=== PATIENT | female | born 1975 | race American Indian/Alaskan Native ===

== ENCOUNTER 2019-01-14 10:03 | Observation (INO) | payer SELFPAY ==
[2019-01-14] MEDS ORDERED: ASPIRIN PO ONE (10:06)
[2019-01-14 10:38] LABS: Basophils # (Auto) 0.1 K/mm3 (0.0-0.1); Basophils % (Auto) 0.7 % (0.0-1.8); Eosinophils % (Auto) 0.6 % (0.0-4.3); Lymphocytes # (Auto) 1.1 K/mm3 (1.2-5.4); Lymphocytes % (Auto) 14.2 % (13.4-35.0); Mean Corpuscular HGB Conc 30 % (30-34); Monocytes # (Auto) 0.7 K/mm3 (0.0-0.8); Monocytes % (Auto) 9.6 % (0.0-7.3); Platelet Count 354 K/mm3 (140-440); Red Blood Count 4.23 M/mm3 (3.65-5.03)
[2019-01-14 10:40] LABS: Hematocrit 28.3 % (30.3-42.9); Hemoglobin 8.3 gm/dl (10.1-14.3); Mean Corpuscular Volume 67 fl (79-97)
[2019-01-14] MEDS ORDERED: NITROSTAT SL PRN (10:40)
[2019-01-14] MEDS ORDERED: PEPCID IV ONE (10:40)
[2019-01-14] MEDS ORDERED: NACL 0.9% 1000 ML 1,000 ML IV ONE (10:40)
[2019-01-14] MEDS ORDERED: TORADOL IV ONE (10:40)
[2019-01-14 10:41] LABS: Red Cell Distribution Width 20.8 % (13.2-15.2)
--- NOTE | 2019-01-14 10:41 | Emergency Department Report ---
ED General Adult HPI - General Chief complaint: Chest Pain Stated complaint: CHEST PAIN Time Seen by Provider: 01/14/19 10:15 Source: patient, EMS (ems notes not available at time of chart dictation), RN notes reviewed Mode of arrival: Stretcher Limitations: No Limitations - History of Present Illness Initial comments: Primary care Dr.: Dr. Joshua Santana This is a 43-year-old female. The patient has a past medical history of hypothyroidism, and is reportedly intermittently compliant with her Synthroid. She reports a family history of heart disease, and reports that her father of a myocardial infarction in his 60s. She also reports being "prediabetic." The patient presents to the emergency room with a complaint of nontraumatic central and bilateral anterior chest wall pain, intermittent over the past few days. There is no vomiting, however there is exertional shortness of breath, palpitations, and patient reports feeling clammy and cold. The shortness of breath is new, and this typically exertional. The chest wall pain increases with palpation, and increases with laying down. She denies DVT, pulmonary embolus risk factors, recent aspirin use, recent cocaine use, and reports no recent cardiac risk stratification within the past year. She reports that she is not , and reports that she has not delivered or given within the past 6 weeks. -: Gradual Location: chest Radiation: non-radiation Severity scale (0 -10): 3 Quality: aching Consistency: other Improves with: other Associated Symptoms: chest pain, diaphoresis, loss of appetite, malaise, shortness of breath, weakness, other (palpitations). denies: confusion, cough, fever/chills, headaches, nausea/vomiting, rash, seizure, syncope - Related Data Home Medications Medication Instructions Recorded Confirmed Last Taken Levothyroxine [Synthroid] 100 mcg PO QAM 09/07/15 01/14/19 01/14/19 Allergies Allergy/AdvReac Type Severity Reaction Status Date / Time seafood AdvReac Swelling Uncoded 09/07/15 15:24 ED Review of Systems ROS: Stated complaint: CHEST PAIN Other details as noted in HPI Constitutional: diaphoresis, malaise Eyes: denies: vision change ENT: denies: congestion Respiratory: shortness of breath. denies: cough Cardiovascular: chest pain, palpitations, dyspnea on exertion Gastrointestinal: denies: vomiting Genitourinary: denies: dysuria Musculoskeletal: denies: arthralgia, myalgia Skin: denies: lesions Neurological: denies: weakness Psychiatric: anxiety ED Past Medical Hx - Past Medical History Previous Medical History?: Yes Hx Hypertension: Yes (no meds "never given RX" per pt) Additional medical history: hypothyroidism - Surgical History Past Surgical History?: No - Social History Smoking Status: Never Smoker Substance Use Type: None - Medications Home Medications: Home Medications Medication Instructions Recorded Confirmed Last Taken Type Levothyroxine [Synthroid] 100 mcg PO QAM 09/07/15 01/14/19 01/14/19 History ED Physical Exam - General Limitations: No Limitations General appearance: alert, anxious, obese - Head Head exam: Present: atraumatic, normocephalic - Eye Eye exam: Present: normal appearance, EOMI. Absent: nystagmus - ENT ENT exam: Present: normal exam, normal orophraynx, mucous membranes moist, normal external ear exam - Neck Neck exam: Present: normal inspection, full ROM. Absent: tenderness, meningismus - Respiratory Respiratory exam: Present: normal lung sounds bilaterally, chest wall tenderness. Absent: respiratory distress - Cardiovascular Cardiovascular Exam: Present: regular rate, normal rhythm, normal heart sounds. Absent: bradycardia, tachycardia, irregular rhythm, systolic murmur, diastolic murmur, rubs, gallop - GI/Abdominal GI/Abdominal exam: Present: soft. Absent: distended, tenderness, guarding, rebound, rigid, pulsatile mass - Extremities Exam Extremities exam: Present: normal inspection, full ROM, normal capillary refill, other (2+ pulses noted in the bilateral upper, lower extremities. Compartments soft. No long bony tenderness. The pelvis is stable.). Absent: pedal edema, joint swelling, calf tenderness - Back Exam Back exam: Present: normal inspection, full ROM. Absent: tenderness, CVA tenderness (R), paraspinal tenderness, vertebral tenderness - Neurological Exam Neurological exam: Present: alert, oriented X3, CN II-XII intact, normal gait, other (Extraocular movements intact. Tongue midline. No facial droop. Facial sensation intact to light touch in the V1, V2, V3 distribution bilaterally. 5 and 5 strength in 4 extremities.. Sensation is intact to light touch in 4 extremities.). Absent: motor sensory deficit - Psychiatric Psychiatric exam: Present: normal affect, normal mood - Skin Skin exam: Present: warm, dry, intact, normal color. Absent: rash ED Course Vital Signs 01/14/19 01/14/19 01/14/19 10:12 10:15 10:31 Temperature Pulse Rate Respiratory Rate Blood Pressure 140/78 140/78 O2 Sat by Pulse 100 100 100 Oximetry 01/14/19 01/14/19 01/14/19 10:47 11:01 11:15 Temperature Pulse Rate 97 H 87 Respiratory 19 20 Rate Blood Pressure 140/78 140/78 150/93 O2 Sat by Pulse 100 100 100 Oximetry 01/14/19 11:38 Temperature 97.8 F Pulse Rate Respiratory Rate Blood Pressure O2 Sat by Pulse Oximetry - Reevaluation(s) Reevaluation #1: 01/14/19 11:29 Differential diagnosis, including but not limited to Bobby GERD, gastritis, costochondritis, pulmonary embolus, acute coronary syndrome, pericarditis, myocarditis, pneumonia Assessment and plan: 43-year-old female with reproducible chest wall pain, however strong family history, patient is obese, female and has a history of borderline diabetes. Troponin negative 1, symptoms present for a few days, therefore myocardial infarction excluded, however occlusive coronary artery disease is not excluded. I find the patient to be low risk by well's criteria, she reports no pulmonary e mbolus or DVT risk factors, she is not hypoxic, her tachycardia has resolved, her d-dimer is negative. X-ray the chest is unremarkable, TSH is low, however patient clinically does not present as severe or profound hypothyroidism. We will admit the patient to the medical service for cardiac risk stratification given her aforementioned vascular risk factors. Discussed with cardiology Dr Rodriguez, and Reinier Obrien, who agree to follow in consultation. Discussed findings with patient and family, who verbalized understanding, and are amenable to hospitalization. 01/14/19 11:42 Reevaluation #2: 01/14/19 11:55 Dr Emil Peres to admit ED Medical Decision Making - Lab Data Result diagrams: 01/14/19 10:17 01/14/19 10:17 Vital Signs 01/14/19 01/14/19 01/14/19 10:12 10:15 10:31 Pulse Rate Respiratory Rate Blood Pressure 140/78 140/78 O2 Sat by Pulse 100 100 100 Oximetry 01/14/19 01/14/1919 10:47 11:01 11:15 Pulse Rate 97 H 87 Respiratory 19 20 Rate Blood Pressure 140/78 140/78 150/93 O2 Sat by Pulse 100 100 100 Oximetry Lab Results 01/14/19 01/14/19 01/14/19 Range/Units 10:17 10:17 10:20 WBC 7.7 (4.5-11.0) K/mm3 RBC 4.23 (3.65-5.03) M/mm3 Hgb 8.3 L (10.1-14.3) gm/dl Hct 28.3 L (30.3-42.9) % MCV 67 L (79-97) fl MCH 20 L (28-32) pg MCHC 30 (30-34) % RDW 20.8 H (13.2-15.2) % Plt Count 354 (140-440) K/mm3 Lymph % (Auto) 14.2 (13.4-35.0) % [place] % (Auto) 9.6 H (0.0-7.3) % Eos % (Auto) 0.6 (0.0-4.3) % Baso % (Auto) 0.7 (0.0-1.8) % Lymph # 1.1 L (1.2-5.4) K/mm3 [place] # 0.7 (0.0-0.8) K/mm3 Eos # 0.0 (0.0-0.4) K/mm3 Baso # 0.1 (0.0-0.1) K/mm3 Seg Neutrophils % 74.9 H (40.0-70.0) % Seg Neutrophils # 5.8 (1.8-7.7) K/mm3 PT 12.9 (12.2-14.9) Sec. INR 0.92 (0.87-1.13) D-Dimer (0-234) ng/mlDDU Sodium 141 (137-145) mmol/L Potassium 5.2 H (3.6-5.0) mmol/L Chloride 104.5 (98-107) mmol/L Carbon Dioxide 23 (22-30) mmol/L Anion Gap 19 mmol/L BUN 13 (7-17) mg/dL Creatinine 0.4 L (0.7-1.2) mg/dL Estimated GFR > 60 ml/min BUN/Creatinine Ratio 33 % Glucose 248 H (65-100) mg/dL Calcium 9.1 (8.4-10.2) mg/dL Magnesium (1.7-2.3) mg/dL Troponin T < 0.010 (0.00-0.029) ng/mL NT-Pro-B Natriuret Pep (0-450) pg/mL TSH (0.270-4.200) mlU/mL HCG, Quant (0-4) mIU/mL 01/14/19 01/14/19 01/14/19 Range/Units 10:20 10:20 10:20 WBC (4.5-11.0) K/mm3 RBC (3.65-5.03) M/mm3 Hgb (10.1-14.3) gm/dl Hct (30.3-42.9) % MCV (79-97) fl MCH (28-32) pg MCHC (30-34) % RDW (13.2-15.2) % Plt Count (140-440) K/mm3 Lymph % (Auto) (13.4-35.0) % [place] % (Auto) (0.0-7.3) % Eos % (Auto) (0.0-4.3) % Baso % (Auto) (0.0-1.8) % Lymph # (1.2-5.4) K/mm3 [place] # (0.0-0.8) K/mm3 Eos # (0.0-0.4) K/mm3 Baso # (0.0-0.1) K/mm3 Seg Neutrophils % (40.0-70.0) % Seg Neutrophils # (1.8-7.7) K/mm3 PT (12.2-14.9) Sec. INR (0.87-1.13) D-Dimer (0-234) ng/mlDDU Sodium (137-145) mmol/L Potassium (3.6-5.0) mmol/L Chloride (98-107) mmol/L Carbon Dioxide (22-30) mmol/L Anion Gap mmol/L BUN (7-17) mg/dL Creatinine (0.7-1.2) mg/dL Estimated GFR ml/min BUN/Creatinine Ratio % Glucose (65-100) mg/dL Calcium (8.4-10.2) mg/dL Magnesium 1.90 (1.7-2.3) mg/dL Troponin T (0.00-0.029) ng/mL NT-Pro-B Natriuret Pep (0-450) pg/mL TSH 0.114 L (0.270-4.200) mlU/mL HCG, Quant < 2 (0-4) mIU/mL 01/14/19 01/14/19 Range/Units 10:20 10:20 WBC (4.5-11.0) K/mm3 RBC (3.65-5.03) M/mm3 Hgb (10.1-14.3) gm/dl Hct (30.3-42.9) % MCV (79-97) fl MCH (28-32) pg MCHC (30-34) % RDW (13.2-15.2) % Plt Count (140-440) K/mm3 Lymph % (Auto) (13.4-35.0) % [place] % (Auto) (0.0-7.3) % Eos % (Auto) (0.0-4.3) % Baso % (Auto) (0.0-1.8) % Lymph # (1.2-5.4) K/mm3 [place] # (0.0-0.8) K/mm3 Eos # (0.0-0.4) K/mm3 Baso # (0.0-0.1) K/mm3 Seg Neutrophils % (40.0-70.0) % Seg Neutrophils # (1.8-7.7) K/mm3 PT (12.2-14.9) Sec. INR (0.87-1.13) D-Dimer > 135 (0-234) ng/mlDDU Sodium (137-145) mmol/L Potassium (3.6-5.0) mmol/L Chloride (98-107) mmol/L Carbon Dioxide (22-30) mmol/L Anion Gap mmol/L BUN (7-17) mg/dL Creatinine (0.7-1.2) mg/dL Estimated GFR ml/min BUN/Creatinine Ratio % Glucose (65-100) mg/dL Calcium (8.4-10.2) mg/dL Magnesium (1.7-2.3) mg/dL Troponin T (0.00-0.029) ng/mL NT-Pro-B Natriuret Pep 9.33 (0-450) pg/mL TSH (0.270-4.200) mlU/mL HCG, Quant (0-4) mIU/mL - EKG Data -: EKG Interpreted by Me EKG shows normal: sinus rhythm Rate: normal - EKG Data When compared to previous EKG there are: previous EKG unavailable 01/14/19 11:36 Sinus rhythm, 95 bpm, normal axis, high left ventricular voltage, borderline atrial enlargement, motion artifact, not consistent with ST elevation myocardial infarction. There is no prior for comparison. - Radiology Data Radiology results: report reviewed, image reviewed X-ray of the chest is negative for acute disease. Critical care attestation.: If time is entered above; I have spent that time in minutes in the direct care of this critically ill patient, excluding procedure time. ED Disposition Clinical Impression: Exertional chest pain Disposition: DC-09 OP ADMIT IP TO THIS HOSP Is pt being admited?: Yes Does the pt Need Aspirin: No (given aspirin by EMS in the field) Condition: Stable Instructions: Chest Pain (ED) Referrals: ALICIA GREENWOOD MD [Primary Care Provider] - 3-5 Days
[2019-01-14 10:48] LABS: INR 0.92 (0.87-1.13)
[2019-01-14 10:54] LABS: BUN/Creatinine Ratio 33; Blood Urea Nitrogen 13 mg/dL (7-17); Calcium 9.1 mg/dL (8.4-10.2); Hemolysis Index 0
--- NOTE | 2019-01-14 10:55 | XRay Report ---
ROUTINE CHEST, TWO VIEWS: HISTORY: Chest pain, palpitations. The trachea, heart, mediastinal contour, lung kwong and bony thorax are unremarkable. IMPRESSION: Unremarkable chest x-ray.
--- NOTE | 2019-01-14 12:16 | Consultation ---
History of Present Illness Consult date: 01/14/19 Consult reason: chest pain, shortness of breath History of present illness: Patient is a 43-year-old woman with a history of diet-controlled hypertension, and prediabetes. No prior cardiac history. She presents to the hospital with 4 days of intermittent substernal chest pain. She describes chest pain that is nonexertional, but aggravated by palpation over the sternum, as well as aggravated by deep inspiration. In the emergency room, an ECG was sinus rhythm with no ischemic changes. Troponin levels were negative. A d-dimer was also normal. Due to continued ongoing chest pain, she was referred for admission and cardiac consultation was requested. Additionally, the patient does complain of increasing exercise intolerance over the past 3-4 days, states that while at work today she had to sit down for a few moments, due to his shortness of breath. This was what eventually to report to the emergency room. Otherwise, she currently looks and feels well, in a stable sinus rhythm, blood pressure 150 systolic, no acute distress. Past History Past Medical History: diabetes, hypertension Medications and Allergies Allergies Allergy/AdvReac Type Severity Reaction Status Date / Time seafood AdvReac Swelling Uncoded 09/07/15 15:24 Home Medications Medication Instructions Recorded Confirmed Last Taken Type Levothyroxine [Synthroid] 100 mcg PO QAM 09/07/15 01/14/19 01/14/19 History Active Meds: Active Medications Nitroglycerin (Nitrostat) 0.4 mg SL .Q5MIN PRN PRN Reason: Chest Pain Last Admin: 01/14/19 11:06 Dose: 0.4 mg Documented by: Review of Systems Cardiovascular: chest pain, shortness of breath, dyspnea on exertion, no orthopnea, no palpitations, no rapid/irregular heart beat, no edema, no syncope, no lightheadedness Physical Examination Vital Signs Pulse Ox 100 01/14/19 10:12 General appearance: no acute distress HEENT: Positive: PERRL Neck: Positive: neck supple Cardiac: Positive: Reg Rate and Rhythm Lungs: Positive: clear to auscultation Neuro: Positive: Grossly Intact Abdomen: Positive: Soft Female genitourinary: deferred Skin: Positive: Clear Extremities: Absent: edema Results 01/14/19 10:17 01/14/19 10:17 Coagulation 01/14/19 Range/Units 10:20 PT 12.9 (12.2-14.9) Sec. INR 0.92 (0.87-1.13) CBC 01/14/19 Range/Units 10:17 WBC 7.7 (4.5-11.0) K/mm3 RBC 4.23 (3.65-5.03) M/mm3 Hgb 8.3 L (10.1-14.3) gm/dl Hct 28.3 L (30.3-42.9) % Plt Count 354 (140-440) K/mm3 Lymph # 1.1 L (1.2-5.4) K/mm3 [place] # 0.7 (0.0-0.8) K/mm3 Eos # 0.0 (0.0-0.4) K/mm3 Baso # 0.1 (0.0-0.1) K/mm3 Comprehensive Metabolic Panel 01/14/19 Range/Units 10:17 Sodium 141 (137-145) mmol/L Potassium 5.2 H (3.6-5.0) mmol/L Chloride 104.5 (98-107) mmol/L Carbon Dioxide 23 (22-30) mmol/L BUN 13 (7-17) mg/dL Creatinine 0.4 L (0.7-1.2) mg/dL Glucose 248 H (65-100) mg/dL Calcium 9.1 (8.4-10.2) mg/dL EKG interpretations - Telemetry EKG Rhythm: Sinus Rhythm Assessment and Plan - Patient Problems (1) Chest pain Current Visit: Yes Status: Acute Plan to address problem: 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 However patient also has the additional symptoms of exertional dyspnea, of unclear etiology. ECG and cardiac enzymes are so far negative. Recommend rule out [place] protocol, followed by echocardiogram and stress test for further cardiac assessment.
[2019-01-14] MEDS ORDERED: SODIUM CHLORIDE FLUSH SYRINGE 10 ML IV PRN ×2 (17:37→23:04)
[2019-01-14] MEDS ORDERED: TYLENOL PO PRN (17:37)
[2019-01-14] MEDS ORDERED: DILAUDID IV PRN (17:37)
[2019-01-14] MEDS ORDERED: PERCOCET 5/325 PO PRN (17:37)
[2019-01-14] MEDS ORDERED: AMBIEN PO PRN (17:37)
[2019-01-14] MEDS ORDERED: ZOFRAN IV PRN ×2 (17:37→23:04)
[2019-01-14] MEDS: PEPCID PO SCH (21:14)
[2019-01-14] MEDS: SODIUM CHLORIDE FLUSH SYRINGE 10 ML IV SCH (21:15)
--- NOTE | 2019-01-14 23:03 | History and Physical Report ---
History of Present Illness Date of examination: 01/14/19 Date of admission: 01/14/19 11:57 Past History Past Medical History: diabetes, hypertension Medications and Allergies Allergies Allergy/AdvReac Type Severity Reaction Status Date / Time No Known Drug Allergies AdvReac Unknown Verified 01/14/19 18:15 seafood AdvReac Swelling Uncoded 09/07/15 15:24 Home Medications Medication Instructions Recorded Confirmed Last Taken Type Levothyroxine [Synthroid] 100 mcg PO QAM 09/07/15 01/14/19 01/14/19 History Active Meds: Active Medications Acetaminophen (Tylenol) 650 mg PO Q4H PRN PRN Reason: Pain MILD(1-3)/Fever >100.5/PAUL Last Admin: 01/14/19 18:42 Dose: 650 mg Documented by: Famotidine (Pepcid) 20 mg PO BID [facility] Last Admin: 01/14/19 21:14 Dose: 20 mg Documented by: Hydromorphone HCl (Dilaudid) 0.5 mg IV Q3H PRN PRN Reason: Pain , Severe (7-10) Nitroglycerin (Nitrostat) 0.4 mg SL .Q5MIN PRN PRN Reason: Chest Pain Last Admin: 01/14/19 11:06 Dose: 0.4 mg Documented by: Ondansetron HCl (Zofran) 4 mg IV Q8H PRN PRN Reason: Nausea And Vomiting Oxycodone/Acetaminophen (Percocet 5/325) 1 tab PO Q6H PRN PRN Reason: Pain, Moderate (4-6) Sodium Chloride (Sodium Chloride Flush Syringe 10 Ml) 10 ml IV BID [facility] Last Admin: 01/14/19 21:15 Dose: 10 ml Documented by: Sodium Chloride (Sodium Chloride Flush Syringe 10 Ml) 10 ml IV PRN PRN PRN Reason: LINE FLUSH Zolpidem Tartrate (Ambien) 5 mg PO QHS PRN PRN Reason: Insomnia Exam - Constitutional Vitals: Temp Pulse Resp BP Pulse Ox 98.4 F 100 H 12 139/69 96 01/14/19 20:23 01/14/19 20:23 01/14/19 20:23 01/14/19 20:23 01/14/19 20:23 Results - Labs CBC & Chem 7: 01/14/19 10:17 01/14/19 10:17 Labs: Laboratory Last Values WBC 7.7 K/mm3 (4.5-11.0) 01/14/19 10:17 RBC 4.23 M/mm3 (3.65-5.03) 01/14/19 10:17 Hgb 8.3 gm/dl (10.1-14.3) L 01/14/19 10:17 Hct 28.3 % (30.3-42.9) L 01/14/19 10:17 MCV 67 fl (79-97) L 01/14/19 10:17 MCH 20 pg (28-32) L 01/14/19 10:17 MCHC 30 % (30-34) 01/14/19 10:17 RDW 20.8 % (13.2-15.2) H 01/14/19 10:17 Plt Count 354 K/mm3 (140-440) 01/14/19 10:17 Lymph % (Auto) 14.2 % (13.4-35.0) 01/14/19 10:17 [place] % (Auto) 9.6 % (0.0-7.3) H 01/14/19 10:17 Eos % (Auto) 0.6 % (0.0-4.3) 01/14/19 10:17 Baso % (Auto) 0.7 % (0.0-1.8) 01/14/19 10:17 Lymph # 1.1 K/mm3 (1.2-5.4) L 01/14/19 10:17 [place] # 0.7 K/mm3 (0.0-0.8) 01/14/19 10:17 Eos # 0.0 K/mm3 (0.0-0.4) 01/14/19 10:17 Baso # 0.1 K/mm3 (0.0-0.1) 01/14/19 10:17 Seg Neutrophils % 74.9 % (40.0-70.0) H 01/14/19 10:17 Seg Neutrophils # 5.8 K/mm3 (1.8-7.7) 01/14/19 10:17 PT 12.9 Sec. (12.2-14.9) 01/14/19 10:20 INR 0.92 (0.87-1.13) 01/14/19 10:20 D-Dimer > 135 ng/mlDDU (0-234) 01/14/19 10:20 Sodium 141 mmol/L (137-145) 01/14/19 10:17 Potassium 5.2 mmol/L (3.6-5.0) H 01/14/19 10:17 Chloride 104.5 mmol/L (98-107) 01/14/19 10:17 Carbon Dioxide 23 mmol/L (22-30) 01/14/19 10:17 Anion Gap 19 mmol/L 01/14/19 10:17 BUN 13 mg/dL (7-17) 01/14/19 10:17 Creatinine 0.4 mg/dL (0.7-1.2) L 01/14/19 10:17 Estimated GFR > 60 ml/min 01/14/19 10:17 BUN/Creatinine Ratio 33 % 01/14/19 10:17 Glucose 248 mg/dL (65-100) H 01/14/19 10:17 Hemoglobin A1c 6.6 % (4-6) H 01/14/19 10:17 Calcium 9.1 mg/dL (8.4-10.2) 01/14/19 10:17 Magnesium 1.90 mg/dL (1.7-2.3) 01/14/19 10:20 Troponin T < 0.010 ng/mL (0.00-0.029) 01/14/19 15:59 NT-Pro-B Natriuret Pep 9.33 pg/mL (0-450) 01/14/19 10:20 TSH 0.114 mlU/mL (0.270-4.200) L 01/14/19 10:20 Free T4 1.46 ng/dL (0.76-1.46) 01/14/19 10:20 HCG, Quant < 2 mIU/mL (0-4) 01/14/19 10:20
[2019-01-14] MEDS ORDERED: SODIUM CHLORIDE FLUSH SYRINGE 10 ML IV SCH (23:45)
[2019-01-15] MEDS ORDERED: SYNTHROID PO SCH (06:00)
[2019-01-15 06:07] LABS: Alanine Aminotransferase 8 units/L (7-56); Albumin 3.7 g/dL (3.9-5); BUN/Creatinine Ratio 28; Blood Urea Nitrogen 11 mg/dL (7-17); Calcium 8.8 mg/dL (8.4-10.2); Hemolysis Index 8
--- NOTE | 2019-01-15 06:11 | Event Note ---
Date: 01/14/19 See H/p in reports Chest pain -r/o [facility]
--- NOTE | 2019-01-15 07:48 | History and Physical Report ---
CHIEF COMPLAINT: Left-sided chest pain since few days. HISTORY OF PRESENT ILLNESS: This is a 43-year-old female with history of hypothyroidism, comes in for left-sided chest pain, which is intermittent for the past few days. Slightly related to exertion. Also, has exertional shortness of breath and palpitations. The patient felt diaphoretic occasionally. No orthopnea. No recent travel. Also chest wall pain increases with palpation. No . No history of hypertension or type 2 diabetes. PAST MEDICAL HISTORY: Significant for hypothyroidism. Hypertension, borderline, but not on any medications. PAST SURGICAL HISTORY: None. SOCIAL HISTORY: Does not smoke. No drugs or alcohol. FAMILY HISTORY: Hypertension. REVIEW OF SYSTEMS: Significant for chest pain and shortness of breath and exertional chest pain sometimes. Otherwise, review of systems negative. PHYSICAL EXAMINATION: GENERAL: Young female, cheerful, cooperative during examination. VITAL SIGNS: Temperature 98.4, pulse is 96, respirations 12, sats are 96%, blood pressure 136/69. HEENT: Unremarkable. Pupils equal and reactive. NECK: Supple, no lymphadenopathy, no thyromegaly. LUNGS: Clear to auscultation and percussion. Good air entry. CARDIOVASCULAR SYSTEM: S1, S2 heard. No gallop, no murmur, no rub. Apical impulse in left fifth intercostal space in midclavicular line. ABDOMEN: Soft and benign. No hepatosplenomegaly. No guarding, no rigidity. Hernial orifices are normal. EXTREMITIES: Good pedal pulses. No pedal edema. CENTRAL NERVOUS SYSTEM: Alert and oriented x 4, nonfocal exam. SKIN: Normal. LABORATORY AND DIAGNOSTIC DATA: EKG shows normal sinus rhythm, heart rate of 95 per minute, LVH criteria present. Chest x-ray, no acute findings. Hemoglobin is 8.3, hematocrit is 28.3, MCV and MCH low. Sodium is 141, potassium is 5.2, BUN and creatinine is 13 and 0.4, glucose is 248. A1c is 6.6. TSH is 0.114. Albumin is 3.7. ASSESSMENT AND PLAN: 1. Chest pain, rule out myocardial infarction, chest pain protocol. Lexiscan in the morning. Serial troponins. 2. Anemia, probably secondary to excessive menstrual bleeding. Iron studies ordered. Probably iron deficiency because of the MCV and MCH being low, will defer to the primary care team to start iron tablets. 3. Hyperkalemia, mild, corrected. 4. New onset diabetes. The patient does not agree to diabetes. The A1c is 6.6. Will start her on metformin 500 b.i.d. and diabetes education by dietitian and also low dose glimepiride 1 mg once a day. To follow up with PCP regarding the new onset diabetes. 5. Hypothyroidism. TSH is low. The Synthroid may have to be decreased. Will defer to the primary care team. 6. Deep venous thrombosis prophylaxis, Lovenox 40 mg subcutaneous daily. JOB# [id number] EMERSNO/ANJUM DUARTE
[2019-01-15] MEDS ORDERED: AMARYL PO SCH (08:00)
[2019-01-15 08:27] LABS: % Iron Saturation 4.9 %
[2019-01-15] MEDS: HumaLOG SUB-Q SCH ×3 (08:53→18:30)
[2019-01-15] MEDS: GLUCOPHAGE PO SCH ×2 (08:53→18:46)
--- NOTE | 2019-01-15 09:31 | Progress Note ---
Assessment and Plan Assessment and plan: 43 year old woman with past medical history of hypothyroidism, who presented with chest pain Diagnoses Chest pain irin deficiency Anemia due to menorrhagia Hyperkalemia New-onset diabetes Hypothyroidism, Plan Cardiology input appreciated, for stress test and echo today Lab tests confirmed iron deficiency, started on iron supplements TSH was suppressed, therefore Synthroid dose was reduced Hemoglobin A1c 6.6. cw with mild DM, started on metformin QD and lifestyle modification recommended DVT ppx early ambulation History Interval history: Review of systems Constitutional: No fevers, no malaise, no joint pains CVS: No chest pain, no orthopnea, no dyspnea on exertion, no pedal edema GI: No abdominal pain, no diarrhea, no vomiting, no constipation Respiratory: No shortness of breath, no wheezing, no coughing Hospitalist Physical - Physical exam Narrative exam: General.: Appears well, no distress, nontoxic HEENT: Moist mucous membranes, extraocular muscles intact, no lymphadenopathy Neck: supple Cardiac: S1-S2 heard Lungs: clear to auscultation bilaterally Abdomen: soft , nontender, nondistended, bowel sounds positive Extremities: no edema clubbing or cyanosis Skin: no rash or lesions Neurologic: no gross focal deficits Psych: calm, and cooperative - Constitutional Vitals: Temp Pulse Resp BP Pulse Ox 98.0 F 91 H 20 148/69 99 01/15/19 07:59 01/15/19 07:59 01/15/19 07:59 01/15/19 07:59 01/15/19 07:59 General appearance: Present: no acute distress Results - Labs CBC & Chem 7: 01/14/19 10:17 01/15/19 04:31 Labs: Laboratory Last Values WBC 7.7 K/mm3 (4.5-11.0) 01/14/19 10:17 RBC 4.23 M/mm3 (3.65-5.03) 01/14/19 10:17 Hgb 8.3 gm/dl (10.1-14.3) L 01/14/19 10:17 Hct 28.3 % (30.3-42.9) L 01/14/19 10:17 MCV 67 fl (79-97) L 01/14/19 10:17 MCH 20 pg (28-32) L 01/14/19 10:17 MCHC 30 % (30-34) 01/14/19 10:17 RDW 20.8 % (13.2-15.2) H 01/14/19 10:17 Plt Count 354 K/mm3 (140-440) 01/14/19 10:17 Lymph % (Auto) 14.2 % (13.4-35.0) 01/14/19 10:17 Mcdonough % (Auto) 9.6 % (0.0-7.3) H 01/14/19 10:17 Eos % (Auto) 0.6 % (0.0-4.3) 01/14/19 10:17 Baso % (Auto) 0.7 % (0.0-1.8) 01/14/19 10:17 Lymph # 1.1 K/mm3 (1.2-5.4) L 01/14/19 10:17 Mcdonough # 0.7 K/mm3 (0.0-0.8) 01/14/19 10:17 Eos # 0.0 K/mm3 (0.0-0.4) 01/14/19 10:17 Baso # 0.1 K/mm3 (0.0-0.1) 01/14/19 10:17 Seg Neutrophils % 74.9 % (40.0-70.0) H 01/14/19 10:17 Seg Neutrophils # 5.8 K/mm3 (1.8-7.7) 01/14/19 10:17 PT 12.9 Sec. (12.2-14.9) 01/14/19 10:20 INR 0.92 (0.87-1.13) 01/14/19 10:20 D-Dimer > 135 ng/mlDDU (0-234) 01/14/19 10:20 Sodium 139 mmol/L (137-145) 01/15/19 04:31 Potassium 4.5 mmol/L (3.6-5.0) 01/15/19 04:31 Chloride 109.2 mmol/L (98-107) H 01/15/19 04:31 Carbon Dioxide 21 mmol/L (22-30) L 01/15/19 04:31 Anion Gap 13 mmol/L 01/15/19 04:31 BUN 11 mg/dL (7-17) 01/15/19 04:31 Creatinine 0.4 mg/dL (0.7-1.2) L 01/15/19 04:31 Estimated GFR > 60 ml/min 01/15/19 04:31 BUN/Creatinine Ratio 28 % 01/15/19 04:31 Glucose 145 mg/dL (65-100) H 01/15/19 04:31 Hemoglobin A1c 6.6 % (4-6) H 01/14/19 10:17 Calcium 8.8 mg/dL (8.4-10.2) 01/15/19 04:31 Magnesium 1.90 mg/dL (1.7-2.3) 01/14/19 10:20 Iron 21 ug/dL (37-170) L 01/15/19 07:04 TIBC 429 mcg/dL (250-450) 01/15/19 07:04 % Saturation 4.90 % 01/15/19 07:04 Transferrin 352 mg/dl (192-382) 01/15/19 07:04 Total Bilirubin 0.20 mg/dL (0.1-1.2) 01/15/19 04:31 AST 13 units/L (5-40) 01/15/19 04:31 ALT 8 units/L (7-56) 01/15/19 04:31 Alkaline Phosphatase 60 units/L (35-129) 01/15/19 04:31 Troponin T < 0.010 ng/mL (0.00-0.029) 01/14/19 15:59 NT-Pro-B Natriuret Pep 9.33 pg/mL (0-450) 01/14/19 10:20 Total Protein 6.5 g/dL (6.3-8.2) 01/15/19 04:31 Albumin 3.7 g/dL (3.9-5) L 01/15/19 04:31 Albumin/Globulin Ratio 1.3 % 01/15/19 04:31 Vitamin B12 680.6 pg/mL (211-911) 01/15/19 07:04 TSH 0.114 mlU/mL (0.270-4.200) L 01/14/19 10:20 Free T4 1.46 ng/dL (0.76-1.46) 01/14/19 10:20 HCG, Quant < 2 mIU/mL (0-4) 01/14/19 10:20
[2019-01-15] MEDS ORDERED: LOVENOX SUB-Q SCH (10:00)
[2019-01-15] MEDS ORDERED: THERAGRAN Tab PO SCH (11:30)
--- NOTE | 2019-01-15 11:55 | Progress Note ---
Assessment and Plan Atypical chest pain Normal stress MPI Normal LVEF Negative troponin Type II DM Microcytic anemia New onset per patient No bleeding source per patient Thyroid disorder Recommendations: No further cardiac work-up is needed Anemia work-up per primary team Subjective Date of service: 01/15/19 Principal diagnosis: Chest Pain Interval history: Patient underwent a stress MPI without complications Objective Vital Signs Temp Pulse Resp BP Pulse Ox 01/15/19 10:36 139/80 01/15/19 10:35 157/82 01/15/19 10:34 162/80 01/15/19 10:33 199/73 01/15/19 09:28 165/90 01/15/19 07:59 98.0 F 91 H 20 148/69 99 01/15/19 04:39 98.2 F 103 H 12 137/80 100 01/14/19 23:48 98.3 F 96 H 14 137/72 99 01/14/19 20:23 98.4 F 100 H 12 139/69 96 01/14/19 20:00 96 H 01/14/19 18:16 91 H 01/14/19 15:42 98.4 F 92 H 20 148/78 100 01/14/19 15:08 96 H 01/14/19 14:51 88 21 141/73 100 01/14/19 14:41 85 16 141/73 100 01/14/19 14:31 141/73 100 01/14/19 14:21 141/73 100 01/14/19 14:11 141/73 100 01/14/19 14:01 141/73 100 01/14/19 13:51 141/73 100 01/14/19 13:41 141/73 100 01/14/19 13:31 141/73 100 01/14/19 13:21 141/73 100 01/14/19 13:10 141/73 100 01/14/19 13:01 12 141/73 100 01/14/19 12:45 9 L 141/73 100 01/14/19 12:30 74 20 141/73 100 01/14/19 12:15 83 19 134/73 100 01/14/19 12:00 76 13 134/73 100 - Physical Examination HEENT: Positive: PERRL Neck: Positive: neck supple Cardiac: Positive: Reg Rate and Rhythm Lungs: Positive: Normal Exam Neuro: Positive: Grossly Intact Abdomen: Positive: Soft Skin: Positive: Clear Extremities: Absent: edema - Labs and Meds Cardiac Enzymes 01/15/19 Range/Units 04:31 AST 13 (5-40) units/L Comprehensive Metabolic Panel 01/15/19 Range/Units 04:31 Sodium 139 (137-145) mmol/L Potassium 4.5 (3.6-5.0) mmol/L Chloride 109.2 H (98-107) mmol/L Carbon Dioxide 21 L (22-30) mmol/L BUN 11 (7-17) mg/dL Creatinine 0.4 L (0.7-1.2) mg/dL Glucose 145 H (65-100) mg/dL Calcium 8.8 (8.4-10.2) mg/dL AST 13 (5-40) units/L ALT 8 (7-56) units/L Alkaline Phosphatase 60 (35-129) units/L Total Protein 6.5 (6.3-8.2) g/dL Albumin 3.7 L (3.9-5) g/dL
[2019-01-15] MEDS: TYLENOL PO PRN ×2 (14:23→18:45)
[2019-01-15 16:19] VITALS: BP 128/67
--- NOTE | 2019-01-15 18:02 | Discharge Summary ---
Providers - Providers Date of Admission: 01/14/19 11:57 Attending physician: CONCEPCION EDWARDS MD 01/14/19 11:41 Consult to Physician [CONS] Urgent Comment: Consulting Provider: RYAN MCCAULEY Physician Instructions: Reason For Exam: cp sob 01/15/19 06:23 Consult to Dietitian/Nutrition [CONS] Routine Physician Instructions: New onset diabetes Reason For Exam: Reason for Consult: Nutrition Recommendations Reason for Consult: Diet education Primary care physician: KATERIN VALADEZ Hospitalization Condition: Stable Hospital course: 43 year old woman with past medical history of hypothyroidism, who presented with chest pain. ACS was ruled out. She went on to have stress test that was negative. TSH was suppressed therefore Synthroid dose was reduced. She was started on metformin and lifestyle modifications for prediabetes. She reports menorrhagia and was found to have anemia. She was put on iron supplements and is to follow up with her [employer] for definitive workup and treatment of menorrhagia Diagnoses Chest pain irin deficiency Anemia due to menorrhagia Hyperkalemia New-onset diabetes Hypothyroidism, Disposition: DC- TO HOME OR SELFCARE Time spent for discharge: 33 mins Core Measure Documentation - Palliative Care Palliative Care/ Comfort Measures: Not Applicable - Core Measures Any of the following diagnoses?: none Exam - Constitutional Vitals: Temp Pulse Resp BP Pulse Ox 98.0 F 109 H 20 128/67 100 01/15/19 16:17 01/15/19 16:17 01/15/19 16:17 01/15/19 16:17 01/15/19 16:17 General appearance: Present: no acute distress, well-nourished - EENT Eyes: Present: PERRL ENT: hearing intact, clear oral mucosa - Neck Neck: Present: supple, normal ROM - Respiratory Respiratory effort: normal Respiratory: bilateral: CTA - Cardiovascular Heart Sounds: Present: S1 & S2. Absent: rub, click - Extremities Extremities: pulses symmetrical, No edema Peripheral Pulses: within normal limits - Abdominal General gastrointestinal: Present: soft, non-tender, non-distended, normal bowel sounds Female genitourinary: Present: normal - Integumentary Integumentary: Present: clear, warm, dry - Musculoskeletal Musculoskeletal: gait normal, strength equal bilaterally - Psychiatric Psychiatric: appropriate mood/affect, intact judgment & insight - Neurologic Neurologic: CNII-XII intact, moves all extremities Plan Follow up with: ALFREDO AGRAWALOXFORD MD MICAELA [Referring] - 3-5 Days Prescriptions: metFORMIN [Glucophage] 500 mg PO DAILY #30 tablet Multivitamin Tab [Multiple Vitamin TAB (Theragran)] 1 each PO QDAY #30 tablet
[2019-01-15] MEDS: SODIUM CHLORIDE FLUSH SYRINGE 10 ML IV SCH (18:30)
[2019-01-15] MEDS: PEPCID PO SCH (18:46)
--- NOTE | 2019-01-16 02:07 | Treadmill Report ---
INDICATION: Chest pain. ORDERING PHYSICIAN: Cassandra Rodriguez MD FINDINGS: There is no scintigraphic evidence of myocardial ischemia. The left ventricle is normal in size and systolic function. The left ventricular ejection fraction is measured at 68%. There is normal wall motion, no wall thickening noted on gated imaging. CONCLUSION: Normal perfusion scan. JOB# [id number] ISABELLE/ANJUM
== END 2019-01-15 20:20 | disposition home or self-care (01) ==
LOC: ED 10:03 → 4A 11:57 → INTOOBSV 11:57 → 4A 14:07
PROVIDERS: ADMIT Internal Medicine; ATTEND Internal Medicine
DX: R07.89 Other chest pain (principal); D50.0 Iron deficiency anemia secondary to blood loss (chronic); E87.5 Hyperkalemia; E11.9 Type 2 diabetes mellitus without complications; E03.9 Hypothyroidism, unspecified; I10 Essential (primary) hypertension
CPT/HCPCS: 36415; 71046; 78452; 80048; 80053; 82607; 82747; 83036; 83550; 83735; 83880; 84439; 84443; 84484; 84702; 85025; 85379; 85610; 93005; 93010; 93017; 93306; 96374; 96375; 99284; A9502; G0378; J1885; J7030; J1650

== ENCOUNTER 2020-05-12 06:54 | Emergency (ER) | payer SELFPAY ==
[2020-05-12 07:22] VITALS: BP 153/91
[2020-05-12] MEDS ORDERED: KETOROLAC 60 MG/2 ML INJ IM ONE (08:20)
--- NOTE | 2020-05-12 09:02 | Emergency Department Report ---
ED Lower Extremity HPI - General Chief Complaint: Extremity Injury, Lower Stated Complaint: LEFT HIP PAIN Time Seen by Provider: 05/12/20 08:17 Source: patient Mode of arrival: Ambulatory Limitations: No Limitations - History of Present Illness Initial Comments: This is a 45-year-old female nontoxic, well nourished in appearance, no acute signs of distress presents to the ED with c/o of left hip pain 1 week. Patient denies any trauma. Patient denies any numbness, tingling, fever, chills, nausea, vomiting, chest pain, shortness of breath, headache, stiff neck. Patient denies any joint swelling or joint redness. Patient denies decreased range of motion. Patient stated has decreased gait due to pain. Patient denies any allergies or significant past medical history. MD Complaint: hip injury -: days(s) Injury: Hip: Left Severity: mild Severity scale (0 -10): 8 Improves With: immobilization Worsens With: weight bearing, movement, palpation Associated Symptoms: ambulatory. denies: snap/pop sensation, swelling, numbness, tingling, unable to bear weight, able to partially bear weight - Related Data Previous Rx's Medication Instructions Recorded Last Taken Type Multivitamin Tab [Multiple Vitamin 1 each PO QDAY #30 tablet 01/15/19 Unknown Rx TAB (Theragran)] metFORMIN [Glucophage] 500 mg PO DAILY #30 tablet 01/15/19 Unknown Rx Naproxen 500 mg PO Q12H PRN #20 tablet 05/12/20 Unknown Rx Allergies Allergy/AdvReac Type Severity Reaction Status Date / Time No Known Drug Allergies AdvReac Unknown Verified 05/12/20 07:18 seafood AdvReac Swelling Uncoded 09/07/15 15:24 ED Review of Systems ROS: Stated complaint: LEFT HIP PAIN Other details as noted in HPI Constitutional: denies: chills, fever Eyes: denies: eye pain, eye discharge, vision change ENT: denies: ear pain, throat pain Respiratory: denies: cough, shortness of breath, wheezing Cardiovascular: denies: chest pain, palpitations Endocrine: no symptoms reported Gastrointestinal: denies: abdominal pain, nausea, diarrhea Genitourinary: denies: urgency, dysuria, discharge Musculoskeletal: denies: back pain, joint swelling, arthralgia Skin: denies: rash, lesions Neurological: denies: headache, weakness, paresthesias Psychiatric: denies: anxiety, depression Hematological/Lymphatic: denies: easy bleeding, easy bruising ED Past Medical Hx - Past Medical History Hx Hypertension: Yes (no meds "never given RX" per pt) Hx Congestive Heart Failure: No Hx Diabetes: No Hx Asthma: No Hx COPD: No Additional medical history: hypothyroidism - Social History Smoking Status: Never Smoker - Medications Home Medications: Home Medications Medication Instructions Recorded Confirmed Last Taken Type Multivitamin Tab [Multiple Vitamin 1 each PO QDAY #30 tablet 01/15/19 Unknown Rx TAB (Theragran)] metFORMIN [Glucophage] 500 mg PO DAILY #30 tablet 01/15/19 Unknown Rx Naproxen 500 mg PO Q12H PRN #20 tablet 05/12/20 Unknown Rx ED Physical Exam - General Limitations: No Limitations General appearance: alert, in no apparent distress - Head Head exam: Present: atraumatic, normocephalic - Eye Eye exam: Present: normal appearance - Neck Neck exam: Present: normal inspection, full ROM. Absent: tenderness, meningismus, lymphadenopathy - Extremities Exam Extremities exam: Present: normal inspection, full ROM, tenderness, normal capillary refill. Absent: joint swelling, calf tenderness - Expanded Lower Extremity Exam Left Hip exam: Present: normal inspection, full ROM, tenderness, external rotation, internal rotation, pelvic stability. Absent: swelling, abrasion, laceration, ecchymosis, deformity, crepidus, dislocation, erythema, shortening Upper Leg exam: Present: normal inspection, full ROM. Absent: tenderness, swelling Knee exam: Present: normal inspection, full ROM. Absent: tenderness, swelling Lower Leg exam: Present: normal inspection, full ROM. Absent: tenderness, swelling Ankle exam: Present: normal inspection, full ROM. Absent: tenderness, swelling Foot/Toe exam: Present: normal inspection, full ROM. Absent: tenderness, swelling Neuro vascular tendon exam: Present: no vascular compromise Gait: Positive: observed and normal - Back Exam Back exam: Present: normal inspection, full ROM. Absent: tenderness, CVA tenderness (R), CVA tenderness (L), muscle spasm, paraspinal tenderness, vertebral tenderness, rash noted - Neurological Exam Neurological exam: Present: alert, oriented X3, normal gait - Psychiatric Psychiatric exam: Present: normal affect, normal mood - Skin Skin exam: Present: warm, dry, intact, normal color. Absent: rash ED Course Vital Signs 05/12/20 07:19 Temperature 98.4 F Pulse Rate 86 Respiratory 18 Rate Blood Pressure 153/91 O2 Sat by Pulse 99 Oximetry - Reevaluation(s) Reevaluation #1: 05/12/20 09:08 Patient is speaking in full sentences with no signs of distress noted. ED Lower Extremity MDM - Radiology Data Referring Physician: ANA CARBAJAL Patient Name: FLORENTINO AMBRIZ Date of : 1975 Sex: Female Report Date: 2020-05-12 Report Status: Finalized [facility] [address] [place] [address] XRay Report Signed Patient: FLORENTINO AMBRIZ MR#: [id number] : 1975 Acct:[id number] Age/Sex: 45 / F ADM Date: 05/12/20 Loc: ED Attending Dr: Ordering Physician: ANA CARBAJAL NP Date of Service: 05/12/20 Procedure(s): XR hip 2-3V LT Accession Number(s): [id number] cc: ANA CARBAJAL NP Fluoro Time In Minutes: LEFT HIP 2 VIEWS INDICATION / CLINICAL INFORMATION: hip pain COMPARISON: None available. FINDINGS: BONES / JOINT(S): No acute fracture or subluxation. No significant arthritis. SOFT TISSUES: No significant abnormality. ADDITIONAL FINDINGS: None. Signer Name: Germán eLe MD Signed: 05/12/2020 9:03 AM Workstation Name: [id number] Transcribed By: ES Dictated By: Germán Lee MD Electronically Authenticated By: Germán Lee MD Signed Date/Time: 05/12/20902 DD/ 1 TD/TT: - Medical Decision Making This is a 45-year-old female that presents with left hip strain. Patient is stable and was examined by me. I referred patient to an orthopedic doctor for further evaluation for possible MRI. X-ray has been obtained and dictated by the radiologist. Patient is notified of the x-ray report with noted by the patient. Patient does have normal gait with no tenderness and no joint swelling. No ecchymosis. no joint redness or swelling. Not warm to touch. No signs of cellulites present. Patient was instructed to RICE therapy. Patient received Toradol for pain which stated that her symptoms are improving and subsiding. Patient is discharged with Naproxen. At time of discharge, the patient does not seem toxic or ill in appearance. No acute signs of distress noted. Patient agrees to discharge treatment plan of care. No further questions noted by the patient. Critical care attestation.: If time is entered above; I have spent that time in minutes in the direct care of this critically ill patient, excluding procedure time. ED Disposition Clinical Impression: Strain of left hip Qualifiers: Encounter type: initial encounter Qualified Code(s): S76.012A - Strain of muscle, fascia and tendon of left hip, initial encounter Disposition: TO HOME OR SELFCARE Is pt being admited?: No Does the pt Need Aspirin: No Condition: Stable Instructions: Muscle Strain (ED) Additional Instructions: Follow-up with a orthopedic doctor in 3-5 days or if symptoms worsen and continue return to emergency room as soon as possible. Prescriptions: Naproxen 500 mg PO Q12H PRN #20 tablet PRN Reason: Pain , Severe (7-10) Referrals: ALFREDO AGRAWALLYKENS MD MICAELA [Primary Care Provider] - 3-5 Days PRIMARY CAREMD [Referring] - 3-5 Days LÓPEZ TIM MD [Staff Physician] - 3-5 Days Forms: Work/School Release Form(ED)
--- NOTE | 2020-05-12 09:07 | XRay Report ---
LEFT HIP 2 VIEWS INDICATION / CLINICAL INFORMATION: hip pain COMPARISON: None available. FINDINGS: BONES / JOINT(S): No acute fracture or subluxation. No significant arthritis. SOFT TISSUES: No significant abnormality. ADDITIONAL FINDINGS: None. Signer Name: Germán Lee MD Signed: 05/12/2020 9:03 AM Workstation Name: [id number]
== END 2020-05-12 09:48 | disposition home or self-care (01) ==
LOC: ED 06:54
DX: S76.012A Strain of muscle, fascia and tendon of left hip, initial encounter (principal); I10 Essential (primary) hypertension; Z79.899 Other long term (current) drug therapy; Z91.013 Allergy to seafood; X58.XXXA Exposure to other specified factors, initial encounter; Y93.89 Activity, other specified; Y92.89 Other specified places as the place of occurrence of the external cause; Y99.8 Other external cause status
CPT/HCPCS: 73502; 96372; 99283; J1885